=== PATIENT | female | born 1955 | race Caucasian/White ===

== ENCOUNTER 2018-08-19 07:30 | Day surgery (SDC) | payer MEDICARE ==
[2018-08-18 08:41] VITALS: BMI 41.9
[2018-08-19] MEDS ORDERED: Propofol 10 mg/ml Inj (20 ML) ONE (09:17)
[2018-08-19] MEDS ORDERED: Rocuronium 10 mg/ml (5 ml) ONE (09:30)
[2018-08-19] MEDS ORDERED: ceFAZolin IV 1 gm in Dextrose 2 GM/100 ML BAG IVPB ONE (09:41)
[2018-08-19] MEDS ORDERED: MethylPREDNISolone Depo 40 mg/ml Inj ONE (09:41)
[2018-08-19] MEDS ORDERED: Lidocaine/Epinephrine 1% 1:100000 10 ML IJ ONE (09:42)
[2018-08-19] MEDS ORDERED: Bupivacaine 0.75% Inj(30mL) ONE (09:47)
[2018-08-19] MEDS ORDERED: Bupivacaine 0.25% 20 ML INJ IJ ONE (09:53)
[2018-08-19] MEDS ORDERED: Neostigmine Methylsulfate 3mg/3ml Syringe IV ONE (11:13)
[2018-08-19] MEDS ORDERED: Lactated Ringer's 1,000 ML IV ONE (11:25)
[2018-08-19] MEDS ORDERED: Lactated Ringer's 1,000 ML IV SCH (11:30)
[2018-08-19] MEDS: HYDROmorphone 0.5 mg/0.5 ml ISec IVP PRN ×3 (11:30→11:50)
[2018-08-19] MEDS ORDERED: Oxycodone/Acetaminophen 5/325 mg Tab PO PRN (11:31)
--- NOTE | 2018-08-19 11:31 | PCM.SURG1 ---
Surgeon's Initial Post Op Note - Surgeon's Notes Surgeon: Corine Denson MD Insurance Examiner: Nanci Nicolas pA-C Type of Anesthesia: General Endo, Block Regional Anesthesia Administered By: Dr. Munroe Pre-Operative Diagnosis: Right distal radius fx Operative Findings: tourniquet: 38 min@250mmHg Post-Operative Diagnosis: same Operation Performed: ORIF right distal radius fracture Specimen/Specimens Removed: none Estimated Blood Loss: EBL {In ML}: 5 Blood Products Given: N/A Drains Used: No Drains Post-Op Condition: Fair Date of Surgery/Procedure: 08/19/18 Time of Surgery/Procedure: 11:31
--- NOTE | 2018-08-19 12:48 | RAD ---
Date of service: 08/19/2018 PROCEDURE: Right Wrist Radiographs. HISTORY: pt in pacu s/p ORIF COMPARISON: None. FINDINGS: BONES: Examination made through casting obscuring bony detail. Hardware and screws transfix a comminuted fracture distal radius involving the radial styloid. Radiocarpal intra-articular joint extension noted. JOINTS: First carpal metacarpal hypertrophic osseous arthrosis no dislocation. SOFT TISSUES: Normal. OTHER FINDINGS: None. IMPRESSION: Limited exam through casting. Fixation of a comminuted distal radial fracture. Fracture line faintly visualized.. No hardware failure appreciated. No priors for comparison assessment
[2018-08-19 14:35] VITALS: BP 155/64; PULSE 69; RESP 18; TEMP 98; O2SAT 95
--- NOTE | 2018-08-21 20:34 | OP ---
PROCEDURE DATE: 08/19/2018 SURGEON: Delfino Denson MD VALVE SETTER: Afshin Dias PA-C PREOPERATIVE DIAGNOSIS: Right distal radius fracture, two part. POSTOPERATIVE DIAGNOSIS: Right distal radius fracture, two part. PROCEDURE: Open reduction and internal fixation right distal radius fracture using Synthes plate [id number]. ANESTHESIA: Regional and IV sedation. COMPLICATIONS: None. SPECIMENS: None. ESTIMATED BLOOD LOSS: Minimal. DISPOSITION: Stable to recovery room. DESCRIPTION OF PROCEDURE: The patient was taken to the operating room and placed supine on the operating room table. After adequate anesthesia was given and IV antibiotics, a well-padded non-sterile tourniquet was placed on the patient's right upper extremity. The entire extremity was then prepped and draped in standard surgical fashion. The proposed incision was marked out with a sterile marking pen. This was a longitudinal incision along the course of the flexor carpi radialis tendon. The arm was elevated and exsanguinated with an Esmarch bandage. The tourniquet was inflated to 250 mmHg. The Esmarch bandage was removed. An incision was made through the skin only. All superficial veins were cauterized. Dissection was performed down to the superficial layer of the flexor carpi radialis sheath. It was incised along its radial most border. The flexor carpi radialis tendon was retracted ulnarly. The floor of the FCR sheath was incised as well along its radial most border. Dissection was carried out between the radial artery and the flexor pollicis longus. Any intervening small branches of the radial artery were cauterized. The pronator quadratus was then visualized, it was incised in an L-shaped fashion of its insertion on the radius. The fracture was then visualized and was displaced using a combination of curette and rongeur. All early callus was removed. The fracture was irrigated with copious amount of normal saline and suctioned. A reduction maneuver was then performed. Next, the Synthes volar wrist plate was applied to the volar aspect of the distal radius. It was temporarily transfixed with Wang wires and its location was assessed under fluoroscopy. Excellent placement of the plate was seen and near anatomic reduction was obtained. Three 3.5 mm screws were placed in proximal part of the plate followed by fixed angle packs in the distal aspect of the plate. Once again, the fracture was assessed and had excellent screw placement and anatomic reduction. Temporary K-wires were removed. All screws were tightened once again. Fluoroscopic images revealed excellent placement of screws with no screws penetrating the radiocarpal joint or DRUJ. The wound was irrigated. DRUJ was assessed and was stable for passive range of motion of the wrist and elbow was obtained. Tourniquet was deflated. Hemostasis was obtained. Skin was then closed with 4-0 nylon interrupted sutures. Sterile dressings was applied consisting of fluffs, 4 x 4, and volar plaster splint. The patient tolerated the procedure well and was brought to recovery room, awake, alert, and in excellent condition. Delfino Denson MD
== END 2018-08-19 15:51 | disposition home or self-care (01) ==
LOC: C.SDS 07:30
PROVIDERS: ATTEND Orthopaedic Surgery
DX: S52.571A Other intraarticular fracture of lower end of right radius, initial encounter for closed fracture (principal)
CPT/HCPCS: 25608; 73110; C1713; J0690; J1170; J2405; J2704; J2710; J2765; J3010; J7120

== ENCOUNTER 2019-04-22 18:21 | Outpatient (CLI) | payer MEDICARE | END 2019-04-22 18:22 | disposition home or self-care (01) | LOC: C.SLEEP 18:22 ==